=== PATIENT | male | born 1985 | race Hispanic/Latino ===

== ENCOUNTER → 2022-02-13 | Emergency (ER) | LOC: NAV ERS 10:30 | DX: Z53.21 Procedure and treatment not carried out due to patient leaving prior to being seen by health care provider (principal) ==

== ENCOUNTER 2023-10-08 16:51 | Emergency (ER) | payer SELFPAY ==
[2023-10-08] MEDS ORDERED: Ibuprofen 800 MG TAB ONE (17:16)
[2023-10-08] MEDS ORDERED: Benzonatate 100 MG CAP ONE (17:16)
[2023-10-08 17:21] LABS: #Basophils 0.1 thou/uL (0.0-0.2); #Eosinphils 0.7 thou/uL (0.0-0.7); #Lymphocytes 2.3 thou/uL (1.20-3.40); #Monocytes 0.7 thou/uL (0.11-0.59); #Neutrophils 6.5 thou/uL (1.40-6.50); %Basophils 0.7 % (0.0-1.0); %Eosinophils 6.7 % (0.0-10.0); %Lymphocytes 22.5 % (21.0-51.0); %Monocytes 6.8 % (0.0-10.0); %Neutrophils 63.4 % (42.0-75.0); Hematocrit 32.5 % (42.0-52.0); Hemoglobin 10.1 g/dL (14.0-18.0); Mean Corpuscular Hemoglobin 26.4 pg (27.0-31.0); Mean Corpuscular Volume 85.2 fl (78.0-98.0); Mean Platelet Volume 5.8 fL (7.4-10.4); Platelet Count 315 10x3/uL (130-400); RBC Distribution Width 13.3 % (11.5-14.5); Red Blood Cell (RBC) Count 3.81 mill/uL (4.70-6.10); White Blood Cell (WBC) Count 10.3 10x3/uL (4.8-10.8)
[2023-10-08] MEDS ORDERED: Ipratropium/Albuterol 3 ML NEB ONE (17:26)
[2023-10-08] MEDS ORDERED: Sodium Chloride 0.9% 1,000 ML ONE ×2 (17:26→19:09)
[2023-10-08 17:37] LABS: ALT (SGPT) 16 U/L (8-55); AST (SGOT) 19 U/L (5-34); Albumin 3.2 g/dL (3.5-5.0); Alkaline Phosphatase 65 U/L (40-110); Anion Gap 12 mmol/L (10-20); BUN (Urea Nitrogen) 17 mg/dL (8.9-20.6); Bilirubin, Total 0.3 mg/dL (0.2-1.2); Calc. Creatinine Clearance 0 mL/min (70-130); Calcium 8.9 mg/dL (7.8-10.44); Carbon Dioxide 22 mmol/L (22-29); Chloride 105 mmol/L (98-107); Estimated GFR 102; Globulin 4.8 g/dL (2.4-3.5); Glucose 181 mg/dL (70-105); Potassium 4.9 mmol/L (3.5-5.1); Sodium 134 mmol/L (136-145)
[2023-10-08 17:38] LABS: Troponin I Less than 0.010 ng/mL (< 0.028)
[2023-10-08 18:09] LABS: Influenza A by NAA Not Detected (NotDetected); Influenza B by NAA Not Detected (NotDetected); SARS-CoV-2 NAA Rapid Test Not Detected (NotDetected)
[2023-10-08] MEDS ORDERED: Acetaminophen 500 MG TAB ONE (18:25)
== END 2023-10-08 20:00 | disposition home or self-care (01) ==
LOC: NAV ERS 16:51
DX: B34.9 Viral infection, unspecified (principal)
CPT/HCPCS: 71046; 80053; 83605; 84484; 85025; 93005; 96360; J7050; J7620

== ENCOUNTER 2023-11-27 20:40 | Emergency (ER) | payer OTHER, SELFPAY ==
[2023-11-27] MEDS ORDERED: Acetaminophen 500 MG TAB ONE (20:58)
[2023-11-27 21:02] LABS: #Basophils 0.1 thou/uL (0.0-0.2); #Eosinphils 0.3 thou/uL (0.0-0.7); #Lymphocytes 1.6 thou/uL (1.20-3.40); #Monocytes 0.9 thou/uL (0.11-0.59); #Neutrophils 10.5 thou/uL (1.40-6.50); %Basophils 0.5 % (0.0-1.0); %Lymphocytes 12.1 % (21.0-51.0); %Monocytes 6.8 % (0.0-10.0); %Neutrophils 78.6 % (42.0-75.0); Mean Corpuscular HGB CONC 31.1 g/dL (32.0-36.0); Mean Corpuscular Hemoglobin 25.9 pg (27.0-31.0); Mean Corpuscular Volume 83.4 fl (78.0-98.0); Mean Platelet Volume 5.7 fL (7.4-10.4); Platelet Count 365 10x3/uL (130-400); Red Blood Cell (RBC) Count 3.48 mill/uL (4.70-6.10); White Blood Cell (WBC) Count 13.3 10x3/uL (4.8-10.8)
[2023-11-27] MEDS ORDERED: Albuterol 2.5 MG (3 mL) NEB ONE ×2 (21:04→22:06)
[2023-11-27] MEDS ORDERED: Sodium Chloride 0.9% 2,000 ML ONE (21:11)
[2023-11-27 21:20] LABS: ALT (SGPT) 11 U/L (8-55); AST (SGOT) 24 U/L (5-34); Albumin 2.7 g/dL (3.5-5.0); Alkaline Phosphatase 61 U/L (40-110); Anion Gap 14 mmol/L (10-20); BUN (Urea Nitrogen) 17 mg/dL (8.9-20.6); Bilirubin, Total 0.5 mg/dL (0.2-1.2); Calc. Creatinine Clearance 0 mL/min (70-130); Calcium 8.7 mg/dL (7.8-10.44); Carbon Dioxide 22 mmol/L (22-29); Chloride 102 mmol/L (98-107); Estimated GFR 79; Globulin 5.4 g/dL (2.4-3.5); Glucose 144 mg/dL (70-105); Potassium 4.7 mmol/L (3.5-5.1); Protein, Total 8.1 g/dL (6.0-8.3); Sodium 133 mmol/L (136-145)
[2023-11-27] MEDS ORDERED: cefTRIAXone (ROCEPHIN) 2 GM VIAL ONE (21:31)
[2023-11-27] MEDS ORDERED: Sodium Chloride 0.9% 100 ML ONE (21:33)
[2023-11-27 21:45] LABS: SARS-CoV-2 E Target Negative; SARS-CoV-2 N2 Target Negative; SARS-CoV-2 NAA Rapid Test Not Detected (NotDetected); SARS-CoV-2 RdRP gene Negative
[2023-11-27] MEDS ORDERED: Azithromycin 500 MG VIAL ONE (22:06)
[2023-11-27 23:38] LABS: Clarity Hazy (Clear); Glucose, Urine (Dipstick) Negative (Negative); Ketone, Urine Negative (Negative); Leukocyte Negative (Negative); Nitrite Negative (Negative); Protein, Urine (Dipstick) 100 mg/dL (Neg-Trace); Specific Gravity, Urine 1.025 (1.005-1.030)
[2023-11-27 23:39] LABS: Bilirubin Negative (Negative); Blood, Urine Trace (Negative)
[2023-11-27 23:41] LABS: CAUTI Indications for Culture Fever or rigors
[2023-11-27 23:42] LABS: Bacteria/HPF Rare-Few HPF (None Seen); Mucous/LPF 1+ LPF (<2+)
[2023-11-27 23:44] LABS: Urine Culture Reflex No No
== END 2023-11-27 23:59 | disposition short-term general hospital (02) ==
LOC: NAV ERS 20:40
DX: A41.9 Sepsis, unspecified organism (principal); J18.9 Pneumonia, unspecified organism; J45.909 Unspecified asthma, uncomplicated; Z79.51 Long term (current) use of inhaled steroids
CPT/HCPCS: 71046; 71250; 80053; 81001; 83605; 85025; 87040; 87070; 87205; 94640; 96365; 96375; J0456; J0696; J7030; J7611; U0002